=== PATIENT | male | born 1970 | race African-American/Black ===

== ENCOUNTER 2016-12-18 10:53 | Inpatient (IN) | payer MEDICARE, OTHER ==
[2016-12-18] VITALS (9 sets, daily range): BP systolic 151–185; BP diastolic 85–105
[~2016-12-18] VITALS: Ht 170.2 cm; Wt 53.1 kg
[~2016-12-18 10:53] MED LIST: AMLO5TAB2 PO; CALC667C5 PO; CARV12.544 PO; FOLI1TAB6 PO; POLY33504 PO; SEVE800T PO
[2016-12-18] MEDS ORDERED: ONDANSETRON HCL 4 MG/2 ML VIAL IV ONE (12:15)
[2016-12-18] MEDS ORDERED: ASPirin 81 mg TAB PO ONE (12:15)
[2016-12-18] MEDS ORDERED: HYDROmorphone HCL 2 MG/ML VL IV ONE (12:15)
[2016-12-18 12:42] LABS: Basophils # (auto) 0.1 uL; CONDITION Y; DEFINITIVE SEE PRINTOUT; Monocytes # (auto) 1.2 uL; Neutrophils # (auto) 6.8 uL
[2016-12-18 12:53] LABS: Basophils % (auto) 0.7 % (0.0-2.0); Eosinophils # (auto) 0.1 uL; Hematocrit 19.2 % (41.0-53.0); Lymphocytes # (auto) 4.2 uL; Mean Corpuscular Hemoglobin 29.8 pg (28.0-32.0); Mean Corpuscular Hgb Conc. 33.8 g/dL (32.0-36.0); Mean Platelet Volume 8.6 fL (7.4-10.4); Monocytes % (auto) 9.4 % (0.0-12.0); Neutrophils % (auto) 54.9 % (37.0-80.0); Platelet Count (auto) 166 10^3/uL (140-450); Red Cell Distribution Width 15.4 % (11.6-16.0); White Blood Cell 12.3 10^3/uL (4.4-10.8)
[2016-12-18 12:56] LABS: Hemoglobin 6.5 g/dL (13.5-17.5)
[2016-12-18 13:18] LABS: Albumin 3.3 g/dL (3.4-5.0); Alkaline Phosphatase 131 U/L (45-117); Anion Gap 11 (5-15); Aspartate Aminotransferase 59 U/L (15-37); BUN/Creatinine Ratio 4.8; Bilirubin, Total 0.7 mg/dL (0.2-1.0); Blood Urea Nitrogen 38 mg/dL (7-18); Calcium 8.4 mg/dL (8.5-10.1); Carbon Dioxide 23 mmol/L (21-32); Chloride 97 mmol/L (98-107); GFR African American 9 mL/min; GFR Non-African American 8 mL/min; Glucose 111 mg/dL (74-106); Magnesium 2.3 mg/dL (1.6-2.6); Potassium 4.1 mmol/L (3.5-5.1); Sodium 131 mmol/L (136-145); Total Protein 7.8 g/dL (6.4-8.2)
[2016-12-18 13:35] LABS: Hypochromia Marked; Platelet Estimate Adequate; Schistocytes FEW
[2016-12-18 13:39] LABS: B-Type Natriuretic Peptide 728.4 pg/mL (0-100)
[2016-12-18 13:40] LABS: Temperature: 23.3 C (20.0-25.0)
[2016-12-18] MEDS ORDERED: cefTRIAXone 1GM/50ML D5W 50 ML IV ONE (13:45)
[2016-12-18 13:57] LABS: INR 1.05 (0.9-1.15); Partial Thromboplastin Time 31.7 sec (22.64-33.71); Prothrombin Time 11.4 sec (9.37-12.3)
[2016-12-18] MEDS ORDERED: cloNIDine HCL 0.1 MG TAB PO PRN (14:00)
[2016-12-18] MEDS ORDERED: POLYETHYLENE GLYCOL 17 GM PWDR PO PRN (14:00)
[2016-12-18] MEDS ORDERED: ACETAMINOPHEN 325 MG TAB PO PRN (14:15)
[2016-12-18] MEDS ORDERED: CARVEDILOL 12.5 MG TAB PO ONE (14:15)
[2016-12-18] MEDS ORDERED: MORPHINE SULF INJ 2 MG/ML SYRINGE 1ML IV PRN ×2 (14:15)
[2016-12-18] MEDS ORDERED: DOCUSATE SOD 100 MG CAP PO PRN (14:15)
[2016-12-18] MEDS ORDERED: amLODIPine BESYLATE 5 MG TAB PO ONE (14:15)
[2016-12-18] MEDS ORDERED: ONDANSETRON HCL 4 MG/2 ML VIAL IV PRN (14:15)
[2016-12-18] MEDS ORDERED: TEMAZEPAM 15 MG CAP PO PRN (14:15)
[2016-12-18] MEDS ORDERED: NITROGLYCERIN 0.4 MG SL TAB SL PRN (14:15)
[2016-12-18] MEDS ORDERED: HYDROcodone-ACET 5/325MG TAB PO PRN (14:15)
[2016-12-18] MEDS ORDERED: LORazepam 0.5 MG TAB PO ONE (16:30)
[2016-12-18] MEDS: SEVELAMER 800 MG TAB PO SCH (18:56)
[2016-12-18] MEDS: CALCIUM ACETATE 667 MG CAP PO SCH (18:56)
[2016-12-18] MEDS: CARVEDILOL 12.5 MG TAB PO SCH ×2 (22:00→22:13)
[2016-12-18] MEDS: SODIUM CHLOR 0.9% PF (SALINE LOCK) 10ML VIAL IV SCH (22:06)
[2016-12-19] MEDS ORDERED: LORA1TAB12 PO (02:02)
[2016-12-19] MEDS ORDERED: LORazepam 0.5 MG TAB PO ONE ×2 (03:00→12:15)
[2016-12-19 05:00] VITALS: BP 160/96
[2016-12-19] MEDS: SODIUM CHLOR 0.9% PF (SALINE LOCK) 10ML VIAL IV SCH ×3 (05:27→21:50)
[2016-12-19 06:10] LABS: Basophils # (auto) 0.1 uL; Basophils % (auto) 0.6 % (0.0-2.0); CONDITION Y; Eosinophils # (auto) 0.3 uL; Eosinophils % (auto) 2.6 % (0.0-7.0); Hematocrit 27.2 % (41.0-53.0); Hemoglobin 9.2 g/dL (13.5-17.5); Lymphocytes # (auto) 4.1 uL; Lymphocytes % (auto) 35.4 % (10.0-50.0); Mean Corpuscular Hemoglobin 30.2 pg (28.0-32.0); Mean Platelet Volume 8.9 fL (7.4-10.4); Monocytes # (auto) 1.3 uL; Monocytes % (auto) 10.8 % (0.0-12.0); Neutrophils # (auto) 5.9 uL; Neutrophils % (auto) 50.6 % (37.0-80.0); Platelet Count (auto) 131 10^3/uL (140-450); Red Cell Distribution Width 15.5 % (11.6-16.0); White Blood Cell 11.6 10^3/uL (4.4-10.8)
[2016-12-19 06:41] LABS: Albumin 3.1 g/dL (3.4-5.0); Calcium 7.8 mg/dL (8.5-10.1)
[2016-12-19 06:43] LABS: Bilirubin, Total 0.7 mg/dL (0.2-1.0); Total Protein 7.5 g/dL (6.4-8.2)
[2016-12-19 08:00] VITALS: BP 157/85
[2016-12-19] MEDS: SEVELAMER 800 MG TAB PO SCH ×4 (08:00→18:35)
[2016-12-19] MEDS: CALCIUM ACETATE 667 MG CAP PO SCH ×4 (08:00→18:35)
[2016-12-19] MEDS: FOLIC ACID 1 MG TAB PO SCH (09:23)
[2016-12-19] MEDS: MULTIPLE VITAMIN TAB PO SCH (09:24)
[2016-12-19] MEDS: CARVEDILOL 12.5 MG TAB PO SCH ×2 (09:24→21:50)
[2016-12-19] MEDS: amLODIPine BESYLATE 5 MG TAB PO SCH (09:25)
[2016-12-19 12:23] VITALS: BP 143/87
[2016-12-19 17:25] VITALS: BP 146/87
[2016-12-19] MEDS: LORazepam 0.5 MG TAB PO PRN (21:52)
[2016-12-19 21:53] VITALS: BP 153/86
[2016-12-20 05:22] VITALS: BP 160/74
[2016-12-20] MEDS: SODIUM CHLOR 0.9% PF (SALINE LOCK) 10ML VIAL IV SCH (06:17)
[2016-12-20 08:39] VITALS: BP 160/74
[2016-12-20 09:00] VITALS: BP 151/93
[2016-12-20] MEDS: CALCIUM ACETATE 667 MG CAP PO SCH (09:02)
[2016-12-20] MEDS: SEVELAMER 800 MG TAB PO SCH (09:02)
[2016-12-20] MEDS: FOLIC ACID 1 MG TAB PO SCH (09:03)
[2016-12-20] MEDS: MULTIPLE VITAMIN TAB PO SCH (09:03)
[2016-12-20] MEDS: amLODIPine BESYLATE 5 MG TAB PO SCH (09:04)
[2016-12-20] MEDS: CARVEDILOL 12.5 MG TAB PO SCH (09:04)
[2016-12-20] MEDS: LORazepam 0.5 MG TAB PO PRN (09:14)
[2016-12-20 10:01] VITALS: BP 151/93
== END 2016-12-20 11:45 | disposition home or self-care (01) | DRG 811 ==
LOC: ER 10:53 → TELE 10:54 → TELE-CENTR 15:54
PROVIDERS: ADMIT Internal Medicine; ATTEND Internal Medicine
PROC: 5A1D00Z (ICD-10-PCS; principal; 2016-12-18)
PROC: 30233N1 Transfusion of Nonautologous Red Blood Cells into Peripheral Vein, Percutaneous Approach (ICD-10-PCS; 2016-12-18)
DX: D57.00 Hb-SS disease with crisis, unspecified (principal); N18.6 End stage renal disease; E43 Unspecified severe protein-calorie malnutrition; D68.69 Other thrombophilia; I13.11 Hypertensive heart and chronic kidney disease without heart failure, with stage 5 chronic kidney disease, or end stage renal disease; I48.92 Unspecified atrial flutter; Z68.1 Body mass index [BMI] 19.9 or less, adult; F32.9 Major depressive disorder, single episode, unspecified; F41.9 Anxiety disorder, unspecified; I48.91 Unspecified atrial fibrillation; Z82.49 Family history of ischemic heart disease and other diseases of the circulatory system; Z83.3 Family history of diabetes mellitus; Z99.2 Dependence on renal dialysis; Z88.1 Allergy status to other antibiotic agents
CPT/HCPCS: 36415; 71010; 80053; 83735; 83880; 84443; 84484; 85025; 85610; 85730; 86850; 86900; 86901; 86920; 90935; 93005; 99291; J0696; J2405

== ENCOUNTER 2017-03-26 12:40 | Emergency (ER) | payer MEDICARE, OTHER ==
[~2017-03-26] VITALS: Ht 170.2 cm; Wt 52.6 kg
[~2017-03-26 12:40] MED LIST changes: +LORA1TAB12 PO
[2017-03-26 13:41] LABS: Lymphocytes # (auto) 2.8 uL; Monocytes # (auto) 0.9 uL
[2017-03-26 13:43] LABS: Basophils # (auto) 0.2 uL; Basophils % (auto) 1.5 % (0.0-2.0); Eosinophils # (auto) 0.2 uL; Eosinophils % (auto) 1.8 % (0.0-7.0); Hematocrit 22.8 % (41.0-53.0); Hemoglobin 7.8 g/dL (13.5-17.5); Lymphocytes % (auto) 23.6 % (10.0-50.0); Mean Corpuscular Hemoglobin 30.3 pg (28.0-32.0); Mean Corpuscular Hgb Conc. 34.1 g/dL (32.0-36.0); Mean Corpuscular Volume 88.7 fL (80.0-100.0); Mean Platelet Volume 8.3 fL (6.9-10.8); Monocytes % (auto) 7.4 % (0.0-12.0); Neutrophils # (auto) 7.9 uL; Neutrophils % (auto) 65.7 % (37.0-80.0); Nucleated Red Blood Cells % 0.1 %; Platelet Count (auto) 184 10^3/uL (140-450); Red Cell Distribution Width 15.9 % (11.8-14.3)
[2017-03-26 14:05] LABS: Albumin 3.5 g/dL (3.4-5.0); BUN/Creatinine Ratio 6.7; Bilirubin, Total 0.7 mg/dL (0.2-1.0); Calcium 8.6 mg/dL (8.5-10.1); Total Protein 8.8 g/dL (6.4-8.2)
[2017-03-26] MEDS: KETOROLAC TROMETH 60MG/2ML VIAL IM ONE ×2 (15:38→15:42)
[2017-03-26] MEDS ORDERED: cefTRIAXone W LIDOCAINE 1 GM IM IM ONE (15:45)
[2017-03-26] MEDS ORDERED: amLODIPine BESYLATE 5 MG TAB PO ONE (16:00)
[2017-03-26] MEDS ORDERED: HYDROcodone-ACET 10/325MG TAB PO ONE (16:00)
[2017-03-26 17:15] VITALS: BP 149/80
== END 2017-03-26 16:39 | disposition home or self-care (01) ==
LOC: ER 12:40
DX: I12.0 Hypertensive chronic kidney disease with stage 5 chronic kidney disease or end stage renal disease (principal); N18.6 End stage renal disease; G89.29 Other chronic pain; M54.9 Dorsalgia, unspecified; Z90.49 Acquired absence of other specified parts of digestive tract; Z88.1 Allergy status to other antibiotic agents; Z79.899 Other long term (current) drug therapy
CPT/HCPCS: 36415; 80053; 85025; 93005; 96372; 99285; J0696; J1885

== ENCOUNTER 2017-06-21 10:20 | Emergency (ER) | payer MEDICARE, OTHER ==
[~2017-06-21] VITALS: Ht 167.6 cm; Wt 51.3 kg
[2017-06-21 10:47] VITALS: BP 174/98
[2017-06-21] MEDS ORDERED: cefTRIAXone SOD 1,000 MG VL IM ONE (11:00)
[2017-06-21] MEDS ORDERED: ACETAMINOPHEN/CODEINE#3 (300/30mg) TAB PO ONE (11:00)
== END 2017-06-21 11:19 | disposition home or self-care (01) ==
LOC: ER 10:20
DX: K04.7 Periapical abscess without sinus (principal); I12.9 Hypertensive chronic kidney disease with stage 1 through stage 4 chronic kidney disease, or unspecified chronic kidney disease; N18.9 Chronic kidney disease, unspecified; Z90.49 Acquired absence of other specified parts of digestive tract
CPT/HCPCS: 96372; 99283; J0696

== ENCOUNTER 2017-09-26 19:53 | Emergency (ER) | payer MEDICARE, MEDICAID ==
[~2017-09-26] VITALS: Ht 170.2 cm; Wt 49.9 kg
[2017-09-26] MEDS ORDERED: cloNIDine HCL 0.1 MG TAB PO ONE ×2 (20:00→21:45)
[2017-09-26 22:26] VITALS: BP 164/84
== END 2017-09-26 22:50 | disposition home or self-care (01) ==
LOC: ER 19:53 → EDBD 19:53 → ER 22:50
DX: I12.0 Hypertensive chronic kidney disease with stage 5 chronic kidney disease or end stage renal disease (principal); N18.6 End stage renal disease; Z86.73 Personal history of transient ischemic attack (TIA), and cerebral infarction without residual deficits; Z88.1 Allergy status to other antibiotic agents; Z79.899 Other long term (current) drug therapy; Z90.49 Acquired absence of other specified parts of digestive tract

== ENCOUNTER 2017-10-05 08:13 | Emergency (ER) | payer MEDICARE, MEDICAID ==
[~2017-10-05] VITALS: Ht 170.2 cm; Wt 49.0 kg
[2017-10-05] MEDS ORDERED: LORazepam 0.5 MG TAB PO ONE (09:45)
[2017-10-05] MEDS ORDERED: LORazepam 2MG/ML-1ML VIAL IV ONE (09:45)
[2017-10-05 10:04] LABS: Basophils # (auto) 0.3 uL; Basophils % (auto) 1.9 % (0.0-2.0); Eosinophils # (auto) 0.1 uL; Hematocrit 26.8 % (41.0-53.0); Hemoglobin 8.8 g/dL (13.5-17.5); Lymphocytes # (auto) 2.3 uL; Mean Corpuscular Hemoglobin 28.3 pg (28.0-32.0); Mean Corpuscular Hgb Conc. 32.8 g/dL (32.0-36.0); Mean Corpuscular Volume 86.4 fL (80.0-100.0); Monocytes # (auto) 1.4 uL; Monocytes % (auto) 10.2 % (0.0-12.0); Neutrophils # (auto) 9.4 uL; Neutrophils % (auto) 69.9 % (37.0-80.0); Nucleated Red Blood Cells % 0.1 %; Platelet Count (auto) 136 10^3/uL (140-450); White Blood Cell 13.5 10^3/uL (4.4-10.8)
[2017-10-05 10:15] VITALS: BP 181/89
[2017-10-05 10:22] LABS: INR 1.11 (0.9-1.15); Partial Thromboplastin Time 36.9 sec (23.78-33.04); Prothrombin Time 11.8 sec (9.27-12.13)
[2017-10-05 10:26] LABS: Albumin 3.4 g/dL (3.4-5.0); BUN/Creatinine Ratio 4.9; Calcium 8.8 mg/dL (8.5-10.1); Potassium 4.9 mmol/L (3.5-5.1)
== END 2017-10-05 10:15 | disposition short-term general hospital (02) ==
LOC: ER 08:13
DX: S06.5X9A Traumatic subdural hemorrhage with loss of consciousness of unspecified duration, initial encounter (principal); N18.9 Chronic kidney disease, unspecified; I12.0 Hypertensive chronic kidney disease with stage 5 chronic kidney disease or end stage renal disease; N18.6 End stage renal disease; Z90.49 Acquired absence of other specified parts of digestive tract; Z88.1 Allergy status to other antibiotic agents; Z79.899 Other long term (current) drug therapy; W18.39XA Other fall on same level, initial encounter; Y93.89 Activity, other specified; Y92.89 Other specified places as the place of occurrence of the external cause; Y99.8 Other external cause status
CPT/HCPCS: 36415; 70450; 71045; 80053; 84484; 85025; 85610; 85730; 99291

== ENCOUNTER 2018-12-26 20:17 | Inpatient (IN) | payer MEDICARE, MEDICAID ==
[~2018-12-26] VITALS: Ht 170.2 cm; Wt 49.0 kg
[~2018-12-26 20:17] MED LIST changes: +AMLO5TAB15 PO; -AMLO5TAB2 PO
[2018-12-26 21:24] LABS: Basophils # (auto) 0.1 uL; Basophils % (auto) 1.2 % (0.0-2.0); Eosinophils # (auto) 0 uL; Eosinophils % (auto) 0.2 % (0.0-7.0); Hematocrit 27.6 % (41.0-53.0); Hemoglobin 9.3 g/dL (13.5-17.5); Lymphocytes # (auto) 2.4 uL; Lymphocytes % (auto) 20.1 % (10.0-50.0); Mean Corpuscular Hemoglobin 29.8 pg (28.0-32.0); Mean Corpuscular Hgb Conc. 33.9 g/dL (32.0-36.0); Monocytes # (auto) 0.9 uL; Monocytes % (auto) 7.7 % (0.0-12.0); Neutrophils # (auto) 8.5 uL; Neutrophils % (auto) 70.8 % (37.0-80.0); Nucleated Red Blood Cells % 0.3 %; Platelet Count (auto) 180 10^3/uL (140-450); Red Blood Cells 3.13 10^6/uL (4.5-5.90); Red Cell Distribution Width 16.3 % (11.8-14.3)
[2018-12-26 21:56] LABS: Bilirubin, Total 0.8 mg/dL (0.2-1.0); Total Protein 9.9 g/dL (6.4-8.2)
[2018-12-26 22:05] LABS: BUN/Creatinine Ratio 9.4; Calcium 7.3 mg/dL (8.5-10.1)
[2018-12-26 22:06] LABS: Albumin 4.1 g/dL (3.4-5.0); Magnesium 2.4 mg/dL (1.6-2.6); Potassium 6.4 mmol/L (3.5-5.1)
[2018-12-27] VITALS (20 sets, daily range): BP systolic 184–228; BP diastolic 93–123
[2018-12-27] MEDS ORDERED: HYDROmorphone HCL 2 MG/ML VL IV ONE ×2 (01:15→08:45)
[2018-12-27] MEDS ORDERED: PROMETHAZINE HCL 25 MG/ML 1ML IV ONE (08:45)
[2018-12-27] MEDS ORDERED: FUROSEMIDE 40 MG/4 ML VIAL IV ONE (08:45)
[2018-12-27] MEDS ORDERED: SODIUM BICARBONATE 8.4 % INJ 50ML VIAL IV ONE (08:45)
[2018-12-27] MEDS ORDERED: CALCIUM CHL 100MG/ML 1,000 MG in D5W 5% 100 ML IV ONE (08:45)
[2018-12-27] MEDS ORDERED: ALBUTEROL SULF 2.5 MG/0.5ML(0.5%) NEB SOLN NEB ONE (08:45)
[2018-12-27] MEDS ORDERED: ONDANSETRON HCL 4 MG/2 ML VIAL IV PRN (12:30)
[2018-12-27] MEDS ORDERED: cloNIDine HCL 0.1 MG TAB PO ONE ×2 (12:30→20:00)
[2018-12-27] MEDS ORDERED: HYDROcodone-ACET 5/325MG TAB PO PRN (12:30)
[2018-12-27] MEDS ORDERED: NITROGLYCERIN 0.4 MG SL TAB SL PRN (12:30)
[2018-12-27] MEDS ORDERED: MORPHINE SULF INJ 2 MG/ML SYRINGE 1ML IV PRN ×2 (12:30)
[2018-12-27] MEDS ORDERED: ACETAMINOPHEN 500 MG TAB PO PRN (12:30)
[2018-12-27] MEDS ORDERED: VANCOMYCIN PER PHARMACY 0 MG IV SCH (12:30)
[2018-12-27] MEDS ORDERED: VANCOMYCIN 1GM/250ML 250 ML IV ONE (13:45)
[2018-12-27] MEDS: HYDROmorphone HCL 2 MG/ML VL IV PRN ×3 (15:46→23:49)
[2018-12-27] MEDS: LABETALOL HCL 5 MG/ML ML 20ML VIAL IV PRN ×4 (15:46→23:38)
[2018-12-27] MEDS ORDERED: InsuLIN REG 1unit/0.01ml Soln (100units/ml) IV ONE (16:15)
[2018-12-27] MEDS: SODIUM ZIRCONIUM CYCL 10 GM PAK PO SCH (16:15)
[2018-12-27] MEDS ORDERED: DEXTROSE (50%) 50ML SYRG IV ONE (16:15)
[2018-12-27] MEDS ORDERED: LORazepam 2MG/ML-1ML VIAL ONE (16:27)
[2018-12-27] MEDS ORDERED: FAMOTIDINE 20 MG TAB PO PRN (17:00)
[2018-12-27] MEDS: LORazepam 2MG/ML-1ML VIAL IV PRN (17:20)
--- NOTE | 2018-12-27 17:51 | NUR ---
Admit to ICU from ER on vent MANJIT CHESTER admitted to ICU via rney on monitoring coordinator, ALERT AND ORIENTED. Patient transfered to bed, connected to MONITORS, BVM at bedside. Patient connected to ICU monitoring, weighed by gabriella, oriented to SAMIR DAVIS RN primary RN, unit. PATIENT VITAL SIGNS STABLE, ELEVATED BLOOD PRESSURE, NICARDAPINE DRIP BEING STARTED.
[2018-12-27] MEDS: CALCIUM ACETATE 667 MG CAP PO SCH (18:00)
--- NOTE | 2018-12-27 18:12 | NUR ---
UA AND MRSA SWABS SENT TO LAB PATIENT VOIDED 10 MLS YELLOW URINE IN URINAL PRIOR TO ICU ARRIVAL - SENT TO LAB PER MD REQUEST FOR UA. MRSA X2 SENT TO LAB PER ICU ADMISSION PROTOCOL.
--- NOTE | 2018-12-27 18:39 | NUR ---
CONTACT HOSPITALIST REGARDING DIET ORDER, ORDER FOR CARDIAC/RENAL DIET RECEIVED - HOSPITALIST EBER ORDERED ATTEMPTED BLOOD DRAW FROM RIGHT EJ TO SENT TO LAB FOR POTASSIUM RECHECK PATIENT HAS BEEN REFUSING BLOOD DRAW, RIGHT EJ FLUSHES BUT UNABLE TO ASPIRATE BLOOD FROM RIGHT EJ CATHETER. PAGED HOSPITALIST TO NOTIFY.
[2018-12-27 18:52] LABS: Urine Bacteria FEW /hpf (None Seen); Urine Blood TRACE /uL (Negative); Urine WBC 1 /hpf (0 - 3)
[2018-12-27] MEDS: NICARDIPINE 25MG/250ML BAG KIT 250 ML IV SCH ×2 (19:03→21:30)
--- NOTE | 2018-12-27 19:10 | NUR ---
REPORT GIVEN AND CARE ENDORSED TO CIVIL ENGINEERING DESIGNER MARTÍN DUMONT
--- NOTE | 2018-12-27 19:54 | NUR ---
SPOKE WITH EBER WARE, [facility] HOSPITALIST. HE IS AWARE THAT WE ARE UNABLE TO USE THE LEJ IV DUE TO HIGH PRESSURE. MIDLINE ORDER IS IN FOR TOMORROW. ORDER RECEIVED FOR CLONIDINE PO NOW AND LABETOLOL 20 IV X 1 NOW. AWARE OF HIS CURRENT BLOOD PRESSURE 191/104. HR 83. EATING DINNER.
[2018-12-27] MEDS ORDERED: LABETALOL HCL 5 MG/ML ML 20ML VIAL IV ONE (20:00)
--- NOTE | 2018-12-27 20:05 | NUR ---
SPOKE WITH THE PATIENTS SISTER AND SHE WANTS US TO GET HIM EMERGENCY DIALYSIS. CALL IN TO THE HOSPITALIST. EXPLAINED TO HIM THE PLAN FOR HIS CARE WITH MEDICATION TO CONTROL HIS BLOOD PRESSURE. HE IS REQUESTING PAIN MEDICATION FOR PAIN HE EXPERIENCES THROUGH HIS SICKLE CELL.
--- NOTE | 2018-12-27 20:33 | NUR ---
SPOKE WITH DR JOHNSON. HE ASKED ME TO CALL DR SANDRA. PATIENT WANTS EMERGENCY DIALYSIS. CALLED DR SANDRA'S EXCHANGE AND EXPLAINED THE SITUATION. THE CALL CENTER STATED THAT THEY WOULD ZAHEER IT URGENT. BUN 91 AND CREAT 9.65. PAIN MEDICATION GIVEN AND THE TWO MEDS CLONIDINE AND LABETOLOL.
[2018-12-27] MEDS: CARVEDILOL 12.5 MG TAB PO SCH (21:44)
--- NOTE | 2018-12-27 22:21 | NUR ---
STATES HE HAS A HEADACHE AND HE IS NERVOUS. REQUESTING ATIVAN. THE CURRENT ORDER IS NOT DUE TILL 0120. THE CRUSHER TENDER IS HERE. HE IS TEXTING DR SANDRA FOR A POSSIBLE ONE TIME DOSE OF ATIVAN. REFUSING TYLENOL OR NORCO.
[2018-12-27 22:22] LABS: INR 1.16 (0.9-1.15); Partial Thromboplastin Time 41.1 sec (23.64-32.05)
[2018-12-27 22:28] LABS: Basophils # (auto) 0.1 uL; Basophils % (auto) 0.9 % (0.0-2.0); Eosinophils # (auto) 0 uL; Eosinophils % (auto) 0.2 % (0.0-7.0); Hematocrit 22.6 % (41.0-53.0); Hemoglobin 7.6 g/dL (13.5-17.5); Lymphocytes # (auto) 3.4 uL; Lymphocytes % (auto) 27.2 % (10.0-50.0); Mean Corpuscular Hemoglobin 29.7 pg (28.0-32.0); Mean Corpuscular Hgb Conc. 33.9 g/dL (32.0-36.0); Mean Corpuscular Volume 87.6 fL (80.0-100.0); Monocytes # (auto) 1.3 uL; Monocytes % (auto) 10.7 % (0.0-12.0); Neutrophils # (auto) 7.5 uL; Nucleated Red Blood Cells % 0.2 %; Platelet Count (auto) 181 10^3/uL (140-450); Red Blood Cells 2.57 10^6/uL (4.5-5.90); Red Cell Distribution Width 15.8 % (11.8-14.3); White Blood Cell 12.4 10^3/uL (4.4-10.8)
[2018-12-27 22:33] LABS: Albumin 3.3 g/dL (3.4-5.0); Calcium 6.9 mg/dL (8.5-10.1); Magnesium 2.3 mg/dL (1.6-2.6)
[2018-12-27 22:36] LABS: BUN/Creatinine Ratio 9.8; Bilirubin, Total 0.7 mg/dL (0.2-1.0); Total Protein 8.4 g/dL (6.4-8.2)
[2018-12-27 22:44] LABS: Potassium 6.5 mmol/L (3.5-5.1)
[2018-12-27] MEDS ORDERED: EPOETIN ALFA 10,000 UNIT/1 ML VIAL IV ONE (22:45)
[2018-12-27] MEDS ORDERED: LORazepam 0.5 MG TAB PO ONE (22:45)
--- NOTE | 2018-12-27 23:24 | NUR ---
CALLED PHARMACY FOR THE ATIVAN ORDER TO BE PUT THROUGH
[2018-12-28] VITALS (43 sets, daily range): BP systolic 155–236; BP diastolic 79–123
[2018-12-28] MEDS: SODIUM ZIRCONIUM CYCL 10 GM PAK PO SCH ×3 (00:15→16:15)
[2018-12-28] MEDS: LABETALOL HCL 5 MG/ML ML 20ML VIAL IV PRN ×6 (01:37→20:38)
--- NOTE | 2018-12-28 01:40 | NUR ---
DECISION TO STAY ON DIALYSIS. SBP HIGH. Q 2 HR LABETOLOL. NSR WITH OCCASIONAL PVCS.
[2018-12-28] MEDS: NICARDIPINE 25MG/250ML BAG KIT 250 ML IV SCH ×3 (02:30→12:17)
--- NOTE | 2018-12-28 04:00 | NUR ---
WOKE UP AND FIRST THING HE ASKED FOR WAS PAIN MEDICATION. SBP 221. DILAUDID AND LABETOLOL GIVEN. NO NAUSEA. SPEECH CLEAR. HINKLE WELL. NSR WITHOUT ECTOPY. IV PUSHES HARD.
[2018-12-28 04:08] LABS: Basophils # (auto) 0.1 uL; Eosinophils # (auto) 0.1 uL; Neutrophils # (auto) 6.2 uL; Red Blood Cells 2.78 10^6/uL (4.5-5.90)
[2018-12-28 04:11] LABS: Basophils % (auto) 0.8 % (0.0-2.0); Eosinophils % (auto) 1.1 % (0.0-7.0); Hematocrit 24.3 % (41.0-53.0); Hemoglobin 8.5 g/dL (13.5-17.5); Lymphocytes % (auto) 29.4 % (10.0-50.0); Mean Corpuscular Hemoglobin 30.4 pg (28.0-32.0); Mean Corpuscular Hgb Conc. 34.8 g/dL (32.0-36.0); Mean Corpuscular Volume 87.2 fL (80.0-100.0); Monocytes # (auto) 0.9 uL; Monocytes % (auto) 8.3 % (0.0-12.0); Neutrophils % (auto) 60.4 % (37.0-80.0); Nucleated Red Blood Cells % 0.1 %; Platelet Count (auto) 173 10^3/uL (140-450); Red Cell Distribution Width 15.7 % (11.8-14.3); White Blood Cell 10.2 10^3/uL (4.4-10.8)
[2018-12-28] MEDS: HYDROmorphone HCL 2 MG/ML VL IV PRN ×5 (04:59→22:01)
[2018-12-28] MEDS: CARVEDILOL 12.5 MG TAB PO SCH (05:54)
[2018-12-28] MEDS: amLODIPine BESYLATE 5 MG TAB PO SCH (05:54)
--- NOTE | 2018-12-28 05:55 | NUR ---
SBP REMAINS HIGH DESPITE THE Q 2 HR LABETOLOL. NORVASC AND COREG, HIS REGULAR MEDICATIONS HE TAKES AT HOME, GIVEN EARLY.
[2018-12-28] MEDS: LORazepam 2MG/ML-1ML VIAL IV PRN ×2 (06:02→18:41)
--- NOTE | 2018-12-28 07:30 | NUR ---
RECEIVED REPORT PATIENT LYING IN HOSPITAL BED, EYES CLOSED, RESPIRATIONS EVEN AND UNLABORED. NO S/S OF DISTRESS NOTED. ELEVATED BLOOD PRESSURE. NOC RN JUST ADMINISTERED PRN MEDICATION. WILL CONTINUE TO MONITOR CLOSELY. BED IN LOW POSITION, CALL LIGHT WITHIN REACH, IN VIEW OF NURSES STATION
[2018-12-28] MEDS: CALCIUM ACETATE 667 MG CAP PO SCH ×3 (08:00→18:41)
--- NOTE | 2018-12-28 08:00 | NUR ---
REFUSING MIDLINE ORDER RECEIVED FOR MIDLINE ONLY FOR POSITION 18GUAGE EJ. INFORMED PATIENT AWAITING USER EXPERIENCE LEAD PICC RN AND PATIENT STATES "NO ONE ELSE WILL BE POKING ME OR INSERTING ANY OTHER LINE" EDUCATED PATIENT IMPORTANCE OF HAVING PROPER IV ACCESS. PATIENT CONTINUES TO REFUSE. WILL NOTIFY
--- NOTE | 2018-12-28 08:30 | NUR ---
PATIENT REFUSING CURRENT BREAKFAST, STATES WANTED [place] TOAST. LEFT MESSAGE FOR DIETARY. ALSO REFUSED ORDERED MEDS OF PHOSLO AND LOKELMA. EDUCATED PATIENT IMPOETNACE OF TAKING ORDERED MEDICATION. PATIENT VERBALIZED UNDERSTANDING BUT STILL REFUSES. STATES HE ONLY WANTS TO TAKE HOME MEDICATIONS. WILL NOTIFIY
[2018-12-28] MEDS: cefTRIAXone 1GM/50ML D5W 50 ML IV SCH (09:00)
[2018-12-28] MEDS ORDERED: HYDR50TA15 PO (09:35)
[2018-12-28] MEDS ORDERED: LABE300T3 PO (09:36)
--- NOTE | 2018-12-28 09:45 | NUR ---
PATIENT REFUSING COZAAR STATES DOES NOT WANT TO TAKE A NEW MEDICATION, ONLY WANTS HOME MEDICATIONS RESTARTED. EDUCATED IMPORTANCE OF TAKING BLOOD PRESSURE MEDICATIONS HIS BLOOD PRESSURE IF VERY ELEVATED. HE VERBALIZED UNDERSTANDING BUT INSISTED ONLY WILL TAKE HOME MEDICATIONS. WILL NOTIFY
[2018-12-28 09:47] LABS: Albumin 3.3 g/dL (3.4-5.0); BUN/Creatinine Ratio 8.2; Calcium 7.5 mg/dL (8.5-10.1); Potassium 3.7 mmol/L (3.5-5.1)
[2018-12-28 09:48] LABS: Bilirubin, Total 0.9 mg/dL (0.2-1.0); Phosphorus 3.1 mg/dL (2.5-4.90); Total Protein 8.4 g/dL (6.4-8.2)
[2018-12-28] MEDS ORDERED: LOSARTAN POTASSIUM 25 MG TAB PO SCH (10:00)
--- NOTE | 2018-12-28 10:15 | NUR ---
DR SANDRA AT BEDSIDE UPDATED ON CURRENT STATUS. RECEIVED NEW ORDERS TO RESUME PATIENTS HOME BLOOD PRESSURE MEDICATIONS. PATIENT UPDATED ON PLAN OF CARE
[2018-12-28] MEDS: hydrALAZINE HCL 25 MG TAB PO SCH ×2 (10:31→22:22)
[2018-12-28] MEDS: LABETALOL HCL 200 MG TAB PO SCH ×2 (10:33→22:22)
--- NOTE | 2018-12-28 12:20 | NUR ---
DR SCHULTE AT BEDSIDE DISCUSSED PLAN OF CARE WITH PATIENT, NEW ORDERS PLACED
--- NOTE | 2018-12-28 13:06 | NUR ---
BED ASSIGNMENT GIVEN 237, REPORT GIVEN TO MADISON RESENDIZ PATIENT WILL FINISH EATING LUNCH AND THEN BE TRANSFERRED TO NEW ROOM ASSIGNMENT. PATIENT AWARE
--- NOTE | 2018-12-28 14:45 | NUR ---
PATIENT TRANSPORTED VIA HOSPITAL BED, CONNECTED TO PORTABLE TELE BOX. STABLE AT TIME OF TRANSFER. VANCOMYCIN DOSAGE GIVEN TO RECEIVING RNMADISON.
--- NOTE | 2018-12-28 14:57 | NUR ---
PER PATIENTS REQUEST, CALLED AND NOTIFIED PATIENTS SISTER EMMANUEL OF NEW ROOM ASSIGNMENT
--- NOTE | 2018-12-28 14:58 | NUR ---
Transferred From ICU Received report on patient, awake and sitting up in bed. Patient shows no signs of distress at this time but states pain 7/10 in joints. Discussed POC with patient along with pain management. Patient refusing antibiotic Vancomycin at this time, stating "I don't like how it makes my stomach feel". Offered patient food to put on stomach as well as PRN nausea medication, but patient still states he does not want to take it. Educated patient importance of antibiotic, patient verbalized understanding. Patient on tele monitor #4 reading sinus rhythm 73. Blood pressure reading 178/85. Discussed PRN blood pressure medication with patient, he verbalized understanding. Bed in lowest locked position, side rails up x2 and call light within reach. Will continue to monitor.
[2018-12-28] MEDS ORDERED: VANCOMYCIN 500 MG in D5W 5% 100 ML IV ONE (15:00)
--- NOTE | 2018-12-28 18:42 | NUR ---
Closing Note Patient sitting up in bed eating dinner. Patient asked for oxygen and stated they feel SOB. Patient's O2 saturation 97% on RA but stated, "that thing don't mean nothing. It doesn't tell you how I'm feeling". Patient placed on PRN oxygen 2L NC. Patient received PRN anxiety medication as well. NOC nurse will be made aware.
--- NOTE | 2018-12-28 19:12 | NUR ---
Opening Shift Note Assumed care of patient, awake and alert x4. No S/S of distress/SOB. He is complaining of pain 8/0-10 to his shoulders and joints, no pain medications due at this time, pain management options discussed. Call light is within reach, side rail sup x2, bed is in lowest position. Instructed on POC and to call for assist PRN, will continue to monitor for changes Q1hr and PRN.
--- NOTE | 2018-12-28 21:36 | NUR ---
IV insertion to left shoulder IV access obtained, via clean sterile technique by inserting 22 gauge catheter to the left shoulder after 3 attempt(s). IV secured properly. No trauma to site. Patient tolerated well.
--- NOTE | 2018-12-28 22:03 | NUR ---
IV removal from LEJ due to infiltration IV DC'd with clean sterile technique, catheter fully intact. Pressure dressing applied to site. Patient tolerated well.
--- NOTE | 2018-12-28 23:38 | NUR ---
Blood pressure recheck after 2200 blood pressure medications, patient's BP is now 159/76. There is a prn labetalol IV ordered for systolic blood pressure over 150, this RN informed the patient his blood pressure was still high, he stated, "I've taken enough blood pressure meds tonight, I don't need no more, that blood pressure is good for me." Educated him on the importance of keeping his blood pressure under control, the medications prescribed can help lower it. Patient refused. Will continue to monitor.
[2018-12-29] MEDS: SODIUM ZIRCONIUM CYCL 10 GM PAK PO SCH ×3 (00:15→08:57)
[2018-12-29] MEDS: HYDROmorphone HCL 2 MG/ML VL IV PRN ×3 (02:04→10:25)
[2018-12-29] MEDS: LORazepam 2MG/ML-1ML VIAL IV PRN ×2 (02:46→10:24)
[2018-12-29 05:19] VITALS: BP 175/97
[2018-12-29] MEDS: LABETALOL HCL 200 MG TAB PO SCH (06:24)
[2018-12-29] MEDS: hydrALAZINE HCL 25 MG TAB PO SCH (06:25)
[2018-12-29 06:43] LABS: Basophils # (auto) 0.1 uL; Basophils % (auto) 0.9 % (0.0-2.0); Eosinophils # (auto) 0.1 uL; Lymphocytes # (auto) 3.4 uL; Neutrophils # (auto) 5.7 uL; Neutrophils % (auto) 54.6 % (37.0-80.0)
[2018-12-29 06:45] LABS: Hematocrit 22.2 % (41.0-53.0); Hemoglobin 7.4 g/dL (13.5-17.5); Lymphocytes % (auto) 32.7 % (10.0-50.0); Mean Corpuscular Hgb Conc. 33.5 g/dL (32.0-36.0); Mean Corpuscular Volume 89.6 fL (80.0-100.0); Monocytes # (auto) 1.1 uL; Monocytes % (auto) 10.8 % (0.0-12.0); Nucleated Red Blood Cells % 0.1 %; Platelet Count (auto) 183 10^3/uL (140-450); Red Blood Cells 2.48 10^6/uL (4.5-5.90); White Blood Cell 10.4 10^3/uL (4.4-10.8)
--- NOTE | 2018-12-29 07:15 | NUR ---
Opening Shift Note Report received from NOC RN. Patient rounded on by both RNs, patient observed awake, alert, and resting without S/S of distress. This RN introduced to patient and POC discussed. Patient verbalized understanding. Call monge within reach and patient understood to call if needing assistance.
[2018-12-29 07:23] LABS: Alanine Aminotransferase 30 U/L (16-61); Albumin 2.9 g/dL (3.4-5.0); Anion Gap 12 (5-15); Aspartate Aminotransferase 49 U/L (15-37); BUN/Creatinine Ratio 7.7; Blood Urea Nitrogen 54 mg/dL (7-18); Calcium 6.3 mg/dL (8.5-10.1); Carbon Dioxide 26 mmol/L (21-32); Chloride 98 mmol/L (98-107); GFR African American 11 mL/min; GFR Non-African American 9 mL/min; Glucose 111 mg/dL (74-106); Potassium 5.1 mmol/L (3.5-5.1); Sodium 136 mmol/L (136-145)
[2018-12-29 07:25] LABS: Alkaline Phosphatase 155 U/L (45-117); Bilirubin, Total 0.6 mg/dL (0.2-1.0); Total Protein 7.6 g/dL (6.4-8.2)
[2018-12-29 07:43] VITALS: BP 177/89
[2018-12-29] MEDS: CALCIUM ACETATE 667 MG CAP PO SCH ×3 (08:00→12:37)
--- NOTE | 2018-12-29 08:00 | NUR ---
IV infilitrated Left shoulder IV infiltrated, removed with tip intact. Pressure dressing applied. Attempted to get another IV, patient stated it hurt too bad and that he wanted the charge nurse to attempt to get one. Charge nurse Noreen informed who placed 24G Left Upper arm.
[2018-12-29] MEDS: cefTRIAXone 1GM/50ML D5W 50 ML IV SCH (09:00)
--- NOTE | 2018-12-29 09:00 | NUR ---
Refused medications Patient refused lokelma and phoslo even after this RN educated him on the implications for these. Patient then also refused rocephin.
[2018-12-29] MEDS ORDERED: SODIUM CHL 0.9% 1000 ML BAG XX ONE (09:30)
[2018-12-29] MEDS: amLODIPine BESYLATE 5 MG TAB PO SCH (09:39)
--- NOTE | 2018-12-29 10:15 | NUR ---
at bedside Dr. Swartz at bedside and discussed POC with patient. Plan for patient to have dialysis and then discharge home after. Patient verbalized understanding and requested prescription for ativan. MD verbalized he would provide this.
--- NOTE | 2018-12-29 11:00 | NUR ---
Refused Dialysis Dialysis nurse came to bedside and patient refused to have dialysis per dialysis nurse. Dr. Swartz stated to send patient home and he can go to dialysis tomorrow at [facility] dialysis.
[2018-12-29] MEDS ORDERED: LORazepam 0.5 MG TAB PO ONE (11:15)
[2018-12-29 12:01] VITALS: BP 175/92
[2018-12-29 12:46] VITALS: BP 170/88
--- NOTE | 2018-12-29 13:35 | NUR ---
Discharge Discharge instructions reviewed with patient, who verbalized understanding. IV discontinued with tip in place, pressure dressing applied. Telemetry box cleaned, placed in bubble wrap, and sent to ICU, spoke with Taylor from tele to notify. brianna Fritz, wheeling patient downstairs to ER for taxi pickup.
[2018-12-29] MEDS ORDERED: EPOETIN ALFA 10,000 UNIT/1 ML VIAL SC ONE (21:00)
== END 2018-12-29 13:41 | disposition home or self-care (01) | DRG 640 ==
LOC: ER 20:18 → TELE 20:19 → ICU WEST 12-27 18:04 → TELE-EAST 12-28 14:40
PROVIDERS: ADMIT Nurse Practitioner Acute Care; ATTEND Nurse Practitioner Acute Care
PROC: 5A1D70Z Performance of Urinary Filtration, Intermittent, Less than 6 Hours Per Day (ICD-10-PCS; principal; 2018-12-27)
DX: E87.5 Hyperkalemia (principal); N18.6 End stage renal disease; I16.9 Hypertensive crisis, unspecified; I12.0 Hypertensive chronic kidney disease with stage 5 chronic kidney disease or end stage renal disease; I16.0 Hypertensive urgency; D57.1 Sickle-cell disease without crisis; M35.3 Polymyalgia rheumatica; D63.1 Anemia in chronic kidney disease; I51.7 Cardiomegaly; D72.829 Elevated white blood cell count, unspecified; F41.9 Anxiety disorder, unspecified; Z86.73 Personal history of transient ischemic attack (TIA), and cerebral infarction without residual deficits; Z79.899 Other long term (current) drug therapy; Z91.19 Patient's noncompliance with other medical treatment and regimen; Z99.2 Dependence on renal dialysis; Z87.442 Personal history of urinary calculi; Z90.49 Acquired absence of other specified parts of digestive tract; Z88.1 Allergy status to other antibiotic agents
CPT/HCPCS: 36415; 71045; 80053; 80202; 81001; 82962; 83605; 83735; 84100; 84484; 85025; 85045; 85610; 85730; 87040; 87081; 90935; 93005; 94644; 96374; 96375; G0378; J0696; J0885; J7060

== ENCOUNTER 2019-02-07 15:59 | Inpatient (IN) | payer MEDICARE, MEDICAID ==
[~2019-02-07] VITALS: Ht 170.2 cm; Wt 56.3 kg
--- NOTE | 2019-02-07 00:56 | NUR ---
MS admit from [facility] admitted to tele/MS after SBAR received from Charles RESENDIZ. Per Charles RESENDIZ, patient is to have the ordered blood transfusion with dialysis in the morning, as ordered by . Patient oriented to josh MAYERS RN, unit, room, bed, and unit policies regarding patient care and visiting hours. Patient weighed by bedscale and encouraged to call as needed. All questions and concerns addressed, patient verbalized understanding. Bed is locked in lowest position, side rails x 2 are up, call light is within reach, and bed alarm is on. Addendum: 02/08/19 at 0224 by SELVIN HURST RN RN WRONG DATE: 02/07/2019 CORRECT DATE AND TIME: 02/08/2019 00:56
[~2019-02-07 15:59] MED LIST changes: +HYDR50TA15 PO; +LABE300T3 PO
[2019-02-07 16:53] LABS: Basophils # (auto) 0.3 uL; Monocytes # (auto) 1.3 uL; Nucleated Red Blood Cells % 0.3 %; Red Cell Distribution Width 17.7 % (11.8-14.3)
[2019-02-07 16:57] LABS: Basophils % (auto) 2.1 % (0.0-2.0); Eosinophils # (auto) 0.1 uL; Eosinophils % (auto) 0.9 % (0.0-7.0); Hematocrit 20.8 % (41.0-53.0); Hemoglobin 7.2 g/dL (13.5-17.5); Lymphocytes # (auto) 3.7 uL; Lymphocytes % (auto) 25.4 % (10.0-50.0); Mean Corpuscular Hemoglobin 29.3 pg (28.0-32.0); Mean Corpuscular Hgb Conc. 34.7 g/dL (32.0-36.0); Mean Corpuscular Volume 84.4 fL (80.0-100.0); Neutrophils # (auto) 9.1 uL; Neutrophils % (auto) 62.6 % (37.0-80.0); Platelet Count (auto) 224 10^3/uL (140-450); Red Blood Cells 2.47 10^6/uL (4.5-5.90); White Blood Cell 14.6 10^3/uL (4.4-10.8)
[2019-02-07 17:12] LABS: Albumin 3.1 g/dL (3.4-5.0); BUN/Creatinine Ratio 8.7; Potassium 4.2 mmol/L (3.5-5.1)
[2019-02-07 17:15] LABS: Bilirubin, Total 0.8 mg/dL (0.2-1.0); Total Protein 8.1 g/dL (6.4-8.2)
[2019-02-07] MEDS ORDERED: hydrALAZINE HCL 20 MG/ML VL IV ONE ×2 (17:15→20:15)
[2019-02-07] MEDS ORDERED: ONDANSETRON HCL 4 MG/2 ML VIAL IV ONE (17:15)
[2019-02-07] MEDS ORDERED: HYDROmorphone HCL 2 MG/ML VL IV ONE ×2 (17:15→20:15)
[2019-02-07 17:26] LABS: Calcium 5.9 mg/dL (8.5-10.1)
[2019-02-07] MEDS ORDERED: PROMETHAZINE HCL 25 MG/ML 1ML IV ONE (20:15)
[2019-02-07] MEDS ORDERED: LORazepam 2MG/ML-1ML VIAL IV ONE (20:30)
[2019-02-07] MEDS ORDERED: ONDANSETRON HCL 4 MG/2 ML VIAL IV PRN (21:30)
[2019-02-07] MEDS ORDERED: MORPHINE SULFATE 4 MG/ML SYR/VIAL IV PRN (21:30)
[2019-02-07] MEDS ORDERED: ACETAMINOPHEN 325 MG TAB PO PRN (21:30)
[2019-02-07] MEDS: LABETALOL HCL 200 MG TAB PO SCH (22:00)
[2019-02-07] MEDS: SODIUM CHLORIDE 0.9% 1,000 ML IV SCH (22:52)
[2019-02-07] MEDS: hydrALAZINE HCL 25 MG TAB PO SCH (22:53)
[2019-02-07] MEDS: CARVEDILOL 12.5 MG TAB PO SCH (22:54)
[2019-02-07] MEDS: HYDROmorphone HCL 2 MG TAB PO PRN (22:54)
[2019-02-08] VITALS (10 sets, daily range): BP systolic 125–230; BP diastolic 59–122
[2019-02-08] MEDS: HYDROmorphone HCL 2 MG TAB PO PRN ×3 (00:35→11:18)
[2019-02-08] MEDS: CARVEDILOL 12.5 MG TAB PO SCH ×3 (00:35→22:00)
--- NOTE | 2019-02-08 00:38 | NUR ---
RAQUELAR received from Charles RESENDIZ. Current BP is 169/90. Informed the patient is going to be brought to the floor.
--- NOTE | 2019-02-08 01:30 | NUR ---
PAIN Patient is complaining of pain to the lower back and right shoulder. Patient rates his pain 10/10. Patient was offered PRN IV morphine 2mg, as ordered by MD. Patient is refusing morphine IV at this time. Patient reports that he only takes PO morphine at home and has never taken morphine IV. This RN educated patient that the only pain medication this RN can give at this time is morphine IV. Patient continues to refuse PRN morphine and is requesting hydromorphone for pain. Will inform hospitalist.
[2019-02-08] MEDS ORDERED: MORP1CAP9 PO (01:49)
--- NOTE | 2019-02-08 01:55 | NUR ---
HOSPITALIST PAGED RE: PAIN MEDICATIONS Hospitalist paged regarding pain medications. Patient is complaining of pain to the lower back, right shoulder, and headache (pain scale 10/10). Patient is refusing the ordered PRN IV morphine. Patient reports he only takes morphine PO 30mg every 4-6 hours at home for pain. Patient reports that the only thing that helps with his pain is the hydromorphone IV and patient is requesting hydromorphone IV at this time. Patient is also requesting Ativan prior to getting his dialysis this morning, due to patient getting anxious. Awaiting call back.
--- NOTE | 2019-02-08 02:52 | NUR ---
HOSPITALIST RETURNED CALL RE: PAIN MEDICATION Informed HOSPITALITY COORDINATOR Mamadou that patient is complaining of generalized pain (pain scale 10/10). HOSPITALITY COORDINATOR Cedillo aware that patient has Morphine IV 2mg PRN for pain ordered and patient is refusing morphine IV at this time. Notified EDUAR Cedillo, that patient is requesting hydromorphone IV for pain. No new orders received at this time.
--- NOTE | 2019-02-08 03:10 | NUR ---
PAIN Patient continues to complain of pain (pain scale 10/10). Patient has been offered the PRN Morphine 2mg IV as ordered by MD. Patient continues to refuse PRN morphine IV at this time. Patient states "I do not want to take a new medication I have not taken before." Patient reports he is usually given Hydromorphone IV. Patient educated that the only pain medication available at this time is PRN IV Morphine. Patient is also aware that the next time he can get the PRN hydromorphone PO is at 0454. Patient verbalized understanding and continues to refuse PRN IV Morphine for pain at this.
--- NOTE | 2019-02-08 05:29 | NUR ---
SPOKE WITH EDUAR RUEDA RE: ANXIETY MEDICATION Notified EDUAR Rueda that patient reports he gets anxious prior to receiving dialysis and is requesting something for anxiety. Orders for Ativan 0.5mg PO x 1 received. Order repeated and verified. Will carry out order as received.
[2019-02-08] MEDS ORDERED: LORazepam 0.5 MG TAB PO ONE (05:30)
[2019-02-08] MEDS: LABETALOL HCL 200 MG TAB PO SCH ×3 (06:00→22:00)
[2019-02-08] MEDS: hydrALAZINE HCL 25 MG TAB PO SCH ×3 (06:00→22:00)
--- NOTE | 2019-02-08 06:10 | NUR ---
PATIENT REFUSING ORDERED ANXIETY MEDICATION Updated patient on order received for anxiety. Patient is refusing ordered Ativan 5mg PO. Patient states he needs something stronger prior to receiving dialysis. Patient is also complaining of pain 02/05. Patient has been offered the morphine IV for pain and continues to refuse Morphine IV. Patient continues to request Hydromorphone IV. Patient has been educated regarding pain management. Patient is threatening to leave if he does not received hydromorphone IV or something stronger for anxiety. Will inform hospitalist.
--- NOTE | 2019-02-08 06:15 | NUR ---
HOSPITALIST PAGED RE: ANXIETY MEDICATION Hospitalist paged regarding anxiety medication. Awaiting call back.
--- NOTE | 2019-02-08 06:22 | NUR ---
HOSPITALIST RETURNED CALL RE: ANXIETY MEDICATION Notified EDUAR Cedillo that patient is requesting a higher dose of Ativan PO due to patient stating that Ativan 5mg PO will not help with his anxiety prior to dialysis. EDUAR Cedillo also notified that patient continues to request Hydromorphone IV and patient is threatening to leave if he does not received hydromorphone IV or something stronger for anxiety. No new orders received at this time.
--- NOTE | 2019-02-08 06:23 | NUR ---
PATIENT IS REFUSING LAB DRAWS Patient is refusing lab draw this morning. Educated patient on the need for lab draw, patient verbalized understanding and continues to refuse.
--- NOTE | 2019-02-08 06:31 | NUR ---
DR. SHOEMAKER PAGED RE: ANXIETY MEDICATION Dr. Shoemaker paged regarding anxiety medication. Patient is requesting anxiety medication prior to receiving dialysis due to patient. Awaiting call back.
--- NOTE | 2019-02-08 06:40 | NUR ---
UPDATED PATIENT ON PLAN OF CARE Notified patient that this RN spoke with hospitalist and no new orders were received for anxiety or pain. This RN also notified patient that this RN paged employee placement specialist to try and get an order for anxiety medication. This RN informed patient of the risks if he decides to leave against medical advice. Patient verbalized understanding and has agreed to stay.
[2019-02-08] MEDS: PANTOPRAZOLE 40 MG TAB PO SCH (06:51)
[2019-02-08] MEDS ORDERED: SODIUM CHL 0.9% 1000 ML BAG XX ONE (07:00)
--- NOTE | 2019-02-08 07:20 | NUR ---
CLOSING SHIFT NOTE Patient care endorsed to William RESENDIZ.
--- NOTE | 2019-02-08 07:30 | NUR ---
OPENING SHIFT NOTE PATIENT LAYING IN BED LOW FOWLERS. PATIENT A&OX4. NO S/S OF DISTRESS NOTED AT THIS TIME. PATIENT REPORTS 9/10 PAIN AT THIS TIME. OFFERED PATIENT MORPHINE IV PER EMAR. PATIENT STATES HE DOES NOT TAKE THAT AT HOME AND HE WILL NOT START TAKING IT HERE. PATIENT UPDATED ON POC. ALL QUESTIONS ANSWERED. BED IN LOWEST LOCKED POSITION WITH CALL LIGHT WITHIN REACH. WILL CONTINUE CARE.
[2019-02-08] MEDS ORDERED: LORazepam 2MG/ML-1ML VIAL IV ONE (07:45)
--- NOTE | 2019-02-08 07:57 | NUR ---
SPOKE TO RYAN RESENDIZ FROM [facility] REGARDING TIME FOR DIALYSIS. STATED HE WOULD GET IN CONTACT WITH NURSE WHO WILL BE DOING DIALYSIS ON PATIENT TO CALL THIS RN BACK.
[2019-02-08] MEDS: CALCIUM ACETATE 667 MG CAP PO SCH ×3 (08:00→18:00)
[2019-02-08] MEDS: SEVELAMER 800 MG TAB PO SCH ×3 (08:37→18:27)
--- NOTE | 2019-02-08 08:40 | NUR ---
SPOKE TO RYAN RESENDIZ REGARDING DIALYSIS. STATED HE WILL NOT BE HERE UNTIL 1000AM.
[2019-02-08] MEDS: FOLIC ACID 1 MG TAB PO SCH (10:00)
--- NOTE | 2019-02-08 10:58 | NUR ---
SPOKE TO RYAN RESENDIZ REGARDING DIALYSIS. STATED HE WOULD BE HERE IN 30 MINUTES. PATIENT IN NO S/S OF DISTRESS AT THIS TIME.
--- NOTE | 2019-02-08 13:00 | NUR ---
DIALYSIS AT BEDSIDE.
[2019-02-08 13:46] LABS: Red Blood Cells 2.32 10^6/uL (4.5-5.90)
[2019-02-08 13:47] LABS: Hematocrit 19.5 % (41.0-53.0); Mean Corpuscular Hemoglobin 28.3 pg (28.0-32.0); Mean Corpuscular Hgb Conc. 33.7 g/dL (32.0-36.0); Mean Corpuscular Volume 83.9 fL (80.0-100.0); Platelet Count (auto) 224 10^3/uL (140-450); Red Cell Distribution Width 17.7 % (11.8-14.3); White Blood Cell 13.5 10^3/uL (4.4-10.8)
[2019-02-08 13:50] LABS: BUN/Creatinine Ratio 9.5; Potassium 4.1 mmol/L (3.5-5.1)
--- NOTE | 2019-02-08 13:50 | NUR ---
CRITICAL LAB: RECIEVED CRITICAL LAB OF HGB 6.6 AND CALCIUM 5.8. SPOKE TO Hever BLISS MADE AWARE. RECIEVED ORDER FOR CALCIUM 1GM IVPB. WILL FOLLOW THROUGH.
[2019-02-08 13:52] LABS: Band Neutrophils % (manual) 0; Basophils % (manual) 0 (0.0-2.0); Bilirubin, Total 0.7 mg/dL (0.2-1.0); Blast Cells 0; Eosinophils % (manual) 0 (0-7); Hemoglobin 6.6 g/dL (13.5-17.5); Metamyelocytes % 0; Myelocytes % 0; Promyelocytes % 0; Reactive Lymphocytes 0; Total Protein 7.5 g/dL (6.4-8.2)
[2019-02-08 13:53] LABS: Calcium 5.8 mg/dL (8.5-10.1)
[2019-02-08 13:55] LABS: % Iron Saturation 102.4 % (20-55)
[2019-02-08] MEDS ORDERED: CALCIUM CHL 100MG/ML 1,000 MG in D5W 5% 100 ML IV ONE (14:00)
[2019-02-08] MEDS: SODIUM CHLORIDE 0.9% 1,000 ML IV SCH (14:10)
[2019-02-08] MEDS: HYDROmorphone HCL 2 MG/ML VL IV PRN ×3 (14:45→23:04)
--- NOTE | 2019-02-08 15:17 | NUR ---
PATIENTS BLOOD PRESSURE ELEVATED 2330/121. SPOKE TO Hever BLISS RECEIVED ORDER FOR 10MG HYDRALAZINE IV Q6HPRN FOR BP GREATER THAN 150. TORB. WILL FOLLOW THROUGH.
[2019-02-08 15:25] LABS: Lymphocytes % (manual) 33 (10.0-50.0); Monocytes % (manual) 10 (0-12)
[2019-02-08] MEDS ORDERED: hydrALAZINE HCL 20 MG/ML VL IV PRN (15:30)
--- NOTE | 2019-02-08 15:59 | NUR ---
SPOKE TO Hever BLISS REGARDING ELEVATED BLOOD PRESSURE DURING DIALYSIS. PER Hever BLISS STATED TO NOT TRANSFUSE SECOND UNIT OF BLOOD. WILL FOLLOW THROUGH.
--- NOTE | 2019-02-08 16:00 | NUR ---
SUPERVISOR SLEEPING BAG DEPARTMENT AT BEDSIDE.
--- NOTE | 2019-02-08 16:00 | NUR ---
PER MACHINE PULLER OVER. DIALYSIS COMPLETED.
[2019-02-08] MEDS: amLODIPine BESYLATE 5 MG TAB PO SCH (16:48)
--- NOTE | 2019-02-08 16:48 | NUR ---
PATIENT BLOOD PRESSURE ELEVATED. ATTEMPTED TO GIVE CLONIDINE 0.1MG PO PER EMAR. PATIENT REFUSED STATING HE WAS GETTING TOO MANY BLOOD PRESSURE MEDICATIONS. INFORMED OF IMPORTANCE OF DECREASING BLOOD PRESSURE AND CONSEQUENCES OF ELEVATED BLOOD PRESSURE INCLUDING STROKE. PATIENT VERBALZIED UNDERSTANDING AND CONTINUING TO REFUSE MEDICATION.
[2019-02-08] MEDS ORDERED: hydrALAZINE HCL 20 MG/ML VL IV SCH (18:00)
[2019-02-08] MEDS: cloNIDine HCL 0.1 MG TAB PO PRN (18:27)
--- NOTE | 2019-02-08 19:45 | NUR ---
OPENING SHIFT NOTE Patient is laying in bed low fowlers. Patient is alert and oriented x4. Patient is complaining of generalized pain (pain scale 8/10). Patient has already been medicated for pain (see emar). No S/S of distress noted at this time. Instructed on plan of care and to call for assistance as needed, patient verbalized understanding. Bed is locked in lowest position, side rails x 2 are up, call light is within reach, and bed alarm is on.
--- NOTE | 2019-02-08 20:26 | NUR ---
HOSPITALIST PAGED RE: PAIN MEDICATION Hospitalist paged regarding pain medication. Patient is complaining of generalized pain (02/05). Awaiting call back.
[2019-02-08] MEDS ORDERED: EPOETIN ALFA 10,000 UNIT/1 ML VIAL SC ONE (21:00)
[2019-02-08] MEDS: HYDROcodone-ACET 5/325MG TAB PO PRN (21:25)
--- NOTE | 2019-02-08 21:44 | NUR ---
PATIENT REFUSING SCHEDULED EPOGEN Patient is refusing scheduled epogen. Educated patient on the indications of epogen and why he needs epogen. Patient was also educated on his current hemoglobin level and how the epogen would benefit him. Patient verbalized understanding and continues to refuse scheduled epogen. When this RN asked patient why he is refusing epogen patient did not given an explanation and just said "please nurse."
--- NOTE | 2019-02-08 22:30 | NUR ---
SPOKE WITH DR. JOHNSON RE: BLOOD DRAW Notified Dr. Johnson that patient had a critical hemoglobin level today, had blood transfused, and has orders to check hemoglobin and hematocrit for tomorrow morning. Orders received for CBC to be drawn in the morning. Order read back and verified. Will carry out orders as received. Addendum: 02/09/19 at 0012 by SELVIN HURST RN RN SPOKE WITH DR. JOHNSON RE: BLOOD DRAW Notified Dr. Johnson that patient had a critical hemoglobin level today, had blood transfused, and has *NO orders to check hemoglobin and hematocrit for tomorrow morning. Orders received for CBC to be drawn in the morning. Order read back and verified. Will carry out orders as received.
[2019-02-09] VITALS (7 sets, daily range): BP systolic 114–143; BP diastolic 63–92
[2019-02-09] MEDS: HYDROcodone-ACET 5/325MG TAB PO PRN (01:12)
[2019-02-09] MEDS: HYDROmorphone HCL 2 MG/ML VL IV PRN ×4 (04:06→20:43)
--- NOTE | 2019-02-09 05:10 | NUR ---
SPOKE WITH HOSPITALIST RE: SWELLING Notified EDUAR James that patient woke up with slight swelling to his face. Patients SPO2 is 100% on 2L NC, lung sounds are clear upon auscultation. Orders received from EDUAR James to continue to monitor patient.
[2019-02-09] MEDS: LORazepam 0.5 MG TAB PO PRN (05:34)
[2019-02-09] MEDS: LABETALOL HCL 200 MG TAB PO SCH ×3 (06:00→21:19)
[2019-02-09] MEDS: hydrALAZINE HCL 25 MG TAB PO SCH ×3 (06:00→22:00)
[2019-02-09 06:17] LABS: Hematocrit 22.6 % (41.0-53.0); Hemoglobin 7.6 g/dL (13.5-17.5); Mean Corpuscular Volume 84.7 fL (80.0-100.0); Platelet Count (auto) 178 10^3/uL (140-450)
[2019-02-09 06:21] LABS: Mean Corpuscular Hemoglobin 28.5 pg (28.0-32.0); Mean Corpuscular Hgb Conc. 33.6 g/dL (32.0-36.0); Red Blood Cells 2.66 10^6/uL (4.5-5.90); Red Cell Distribution Width 17.2 % (11.8-14.3)
[2019-02-09] MEDS: PANTOPRAZOLE 40 MG TAB PO SCH (06:21)
[2019-02-09] MEDS: SODIUM CHLORIDE 0.9% 1,000 ML IV SCH ×3 (06:21→17:19)
--- NOTE | 2019-02-09 06:21 | NUR ---
REFUSING BLOOD PRESSURE MEDICATIONS Patient refused scheduled 0600 blood pressure medications. Patient states his "blood pressure is too low." Educated patient on the importance of maintaining blood pressure within normal parameters, patient verbalized understanding, and continues to refuse scheduled blood pressure medications (see eMAR).
[2019-02-09 06:36] LABS: Calcium 6.4 mg/dL (8.5-10.1); Magnesium 1.7 mg/dL (1.6-2.6); Potassium 4.1 mmol/L (3.5-5.1)
[2019-02-09 06:38] LABS: BUN/Creatinine Ratio 7.8
[2019-02-09 06:46] LABS: White Blood Cell 31.4 10^3/uL (4.4-10.8)
[2019-02-09 06:48] LABS: Basophils % (manual) 0 (0.0-2.0); Blast Cells 0; Eosinophils % (manual) 0 (0-7); Metamyelocytes % 0; Myelocytes % 0; Promyelocytes % 0; Reactive Lymphocytes 0
--- NOTE | 2019-02-09 06:48 | NUR ---
HOSPITALIST PAGED RE: CRITICAL LAB VALUE Hospitalist paged regarding critical WBC lab value.
--- NOTE | 2019-02-09 06:53 | NUR ---
HOSPITALIST RETURNED CALL RE: CRITICAL LAB VALUE Hospitalist EDUAR James returned call. Notified STEAMER TENDER Jacob of patients critical WBC level of 31.4. Updated STEAMER TENDER Jacob on patients most recent vital signs and care of plan. Orders received for blood cultures, chest x-ray, lactic acid, zosyn 2.25gm IV piggy back Q12, and vanco IV per pharmacy protocol. Orders read back and verified. Will carry out orders as received.
[2019-02-09] MEDS ORDERED: VANCOMYCIN PER PHARMACY 0 MG IV SCH (07:00)
[2019-02-09 07:18] LABS: Band Neutrophils % (manual) 8; Lymphocytes % (manual) 10 (10.0-50.0); Monocytes % (manual) 8 (0-12)
[2019-02-09] MEDS: SEVELAMER 800 MG TAB PO SCH ×3 (08:00→18:00)
[2019-02-09] MEDS ORDERED: VANCOMYCIN 1GM/250ML 250 ML IV ONE (08:00)
[2019-02-09] MEDS: CALCIUM ACETATE 667 MG CAP PO SCH ×3 (08:00→18:00)
--- NOTE | 2019-02-09 08:07 | NUR ---
Opening Shift Note Received report on the patient. Awake lying in bed. Patient shows no signs of distress at this time. Tried to discuss plan of care with the patient today, but he refused all interaction. Bed in lowest position, side rails up X2, and call light is within reach. Will continue to monitor.
--- NOTE | 2019-02-09 08:10 | NUR ---
Patient Refused Assessment Patient refused morning assessment. Patient stated "just leave me alone".
[2019-02-09] MEDS: amLODIPine BESYLATE 5 MG TAB PO SCH (10:00)
[2019-02-09] MEDS: CARVEDILOL 12.5 MG TAB PO SCH ×3 (10:00→21:14)
[2019-02-09] MEDS: FOLIC ACID 1 MG TAB PO SCH (10:00)
--- NOTE | 2019-02-09 10:03 | NUR ---
Pain Medication physician office secretary notified that the patient wanted pain medication. Patient refused morning assessment. Told patient he could get pain medication after an assessment is done for baseline. No pain medication given because patient refused assessment again.
--- NOTE | 2019-02-09 10:52 | NUR ---
Medication Refusal Patient refused phos lo, renagel, norvasc, coreg, and folic acid.
[2019-02-09] MEDS ORDERED: MAGNESIUM SULFATE 1GM/100ML 100 ML IV ONE (12:15)
[2019-02-09] MEDS: PIPERACILLIN-TAZOB 2.25GM 50 ML IV SCH ×2 (12:56→21:10)
[2019-02-09] MEDS ORDERED: CALCIUM CHL 100MG/ML 1,000 MG in D5W 5% 100 ML IV ONE (13:30)
[2019-02-09 13:48] LABS: Hepatitis A Ab IgM Negative; Hepatitis B Core IgM Negative; Hepatitis B Surface Antigen Negative (Negative)
[2019-02-09 13:49] LABS: Hepatitis C Antibody Negative (Negative)
--- NOTE | 2019-02-09 14:32 | NUR ---
Magnesium Refusal Patient refused magnesium to be hung.
--- NOTE | 2019-02-09 14:32 | NUR ---
Flu Swab Refusal Patient refused to be swabbed for the flu.
--- NOTE | 2019-02-09 17:16 | NUR ---
Resistive to Care Patient is continuing to refuse medications and electrolyte replacement despite multiple attempts on educating patient about his status and current lab values. The only medication that patient wants and calls for is dilaudid, 2mg.
--- NOTE | 2019-02-09 19:07 | NUR ---
Closing Shift Note Patient resting in bed with eyes closed. No distress noted. Respirations are even and unlabored. Patient has continued to be resistive to care all day except for dilaudid, 2 mg administration or requesting multiple food items. Will give report and endorse care to the supervisor color making RN.
--- NOTE | 2019-02-09 19:55 | NUR ---
Opening Shift Note Assumed care of patient, lying in bed, awake and alert, oriented x 4, follows direction, clear speech. On oxygen at 2L via NC with even and unlabored respirations, no S/S of distress or SOB. IV to left 4th digit 24g intact and patent infusing IVF per orders. Right upper chest Sai catheter intact. Patient turns independently in bed. Bed low locked position with side rails up x 2 and call light within reach. Instructed on POC and to call for assist PRN, will continue to monitor for changes Q1hr and PRN.
--- NOTE | 2019-02-09 20:30 | NUR ---
Patient refused dinner patient reports he did not eat the food from dinner, reports he did not like it. Patient asking to order pizza and go down to vending machine to get a snickers bar. Educated patient on diet order and indication for diet, informed patient hospital policies on cafeteria. Patient refused to eat sandwich, Offered patient snack that are available at this time, patient refused. 2230 patient consumed 100% of sandwich and ena crackers.
[2019-02-09 21:09] LABS: Hematocrit 23.2 % (41.0-53.0); Hemoglobin 7.6 g/dL (13.5-17.5); Mean Corpuscular Hemoglobin 28.2 pg (28.0-32.0); Mean Corpuscular Hgb Conc. 32.9 g/dL (32.0-36.0); Mean Corpuscular Volume 85.7 fL (80.0-100.0); Platelet Count (auto) 176 10^3/uL (140-450); Red Blood Cells 2.71 10^6/uL (4.5-5.90); Red Cell Distribution Width 17.4 % (11.8-14.3)
[2019-02-09 21:27] LABS: Basophils % (manual) 0 (0.0-2.0); Blast Cells 0; Eosinophils % (manual) 0 (0-7); Metamyelocytes % 0; Myelocytes % 0; Promyelocytes % 0; Reactive Lymphocytes 0
--- NOTE | 2019-02-09 22:00 | NUR ---
Paged Leonid WITT RE: WBC 37 awaiting call back, will continue care.
--- NOTE | 2019-02-09 22:13 | NUR ---
Received call back from Leonid WITT updated on patient status, no new orders received, will continue care.
[2019-02-09 22:33] LABS: Band Neutrophils % (manual) 20; Lymphocytes % (manual) 13 (10.0-50.0); Monocytes % (manual) 5 (0-12)
--- NOTE | 2019-02-10 | NUR ---
IV insertion IV access obtained, via clean sterile technique by inserting 24 gauge catheter at left forearm after 1 attempt(s). IV secured properly. No trauma to site. Patient tolerated well. NOTE: IV to left hand 4th digit dc'd, patient reports pain to IV site, DC'd with clean sterile technique, catheter fully intact. Pressure dressing applied to site. Patient tolerated well. Addendum: 02/11/19 at 0433 by Betty Serrano RN RN wrong time
[2019-02-10] MEDS: HYDROmorphone HCL 2 MG/ML VL IV PRN ×5 (01:36→22:13)
[2019-02-10] MEDS: LORazepam 0.5 MG TAB PO PRN ×2 (02:49→23:29)
--- NOTE | 2019-02-10 05:15 | NUR ---
Patient refused lab draw Patient is refusing lab draw this morning. Educated patient on the need for lab draw, patient verbalized understanding and continues to refuse.
[2019-02-10 05:36] VITALS: BP 140/83
[2019-02-10] MEDS: hydrALAZINE HCL 25 MG TAB PO SCH ×3 (06:00→20:58)
[2019-02-10] MEDS: LABETALOL HCL 200 MG TAB PO SCH ×3 (06:00→20:56)
--- NOTE | 2019-02-10 06:00 | NUR ---
Influenza swab given to quality control lab technician
[2019-02-10] MEDS: PANTOPRAZOLE 40 MG TAB PO SCH (06:15)
--- NOTE | 2019-02-10 06:18 | NUR ---
[facility] called per dialysis nurse hold a.m. bp meds
--- NOTE | 2019-02-10 06:57 | NUR ---
Closing Note patient resting in bed on oxygen at 2L via NC with even and unlabored respirations, no s/s of distress. IV intact and patent infusing at 50mL/hr. Bed low locked position with side rails up x 2 and call light within reach.
[2019-02-10] MEDS: amLODIPine BESYLATE 5 MG TAB PO SCH (07:12)
[2019-02-10] MEDS: CARVEDILOL 12.5 MG TAB PO SCH ×2 (07:13→20:58)
--- NOTE | 2019-02-10 07:30 | NUR ---
Opening Shift Note Assuming care of patient at this time. Patient is awake and alert. Patient is complaining of 10/10 pain, "all over." Will medicate per doctor's orders. Bed is locked and lowered with side rails up x2. Patient shows no signs or symptoms of shortness of breath. Patient on 2L nasal cannula, respirations are even and unlabored. Instructed patient on the plan of care for today and to call for assistance as needed. Call light within reach. Will continue to round hourly and as needed.
[2019-02-10] MEDS: CALCIUM ACETATE 667 MG CAP PO SCH ×3 (07:56→18:00)
[2019-02-10] MEDS: SEVELAMER 800 MG TAB PO SCH ×3 (07:56→18:00)
[2019-02-10 09:00] VITALS: BP 132/74
[2019-02-10] MEDS: FOLIC ACID 1 MG TAB PO SCH (10:00)
--- NOTE | 2019-02-10 10:22 | NUR ---
Refusing Labs Patient is refusing labs at this time. Patient has refused x3. Lab order will be cancelled per protocol. Will notify
--- NOTE | 2019-02-10 10:25 | NUR ---
Page to Dr. Neff to Dr. Fraser at this time to notify about patient's refusals. Awaiting call back.
--- NOTE | 2019-02-10 10:29 | NUR ---
Doctors at the station Dr. Fraser and Dr. Benjamin at the station at this time. Informed both doctors about patient refusing labs and medications. Doctors verbalized understanding.
[2019-02-10] MEDS: PIPERACILLIN-TAZOB 2.25GM 50 ML IV SCH ×2 (11:22→23:20)
[2019-02-10 11:44] LABS: Eosinophils # (auto) 0 uL; Hemoglobin 7.1 g/dL (13.5-17.5); Nucleated Red Blood Cells % 0.1 %; White Blood Cell 28.7 10^3/uL (4.4-10.8)
[2019-02-10 11:48] LABS: Basophils # (auto) 0.1 uL; Basophils % (auto) 0.4 % (0.0-2.0); Hematocrit 21.2 % (41.0-53.0); Lymphocytes # (auto) 3.7 uL; Lymphocytes % (auto) 13.1 % (10.0-50.0); Mean Corpuscular Hemoglobin 28.6 pg (28.0-32.0); Mean Corpuscular Hgb Conc. 33.7 g/dL (32.0-36.0); Mean Corpuscular Volume 84.8 fL (80.0-100.0); Monocytes # (auto) 1.8 uL; Monocytes % (auto) 6.2 % (0.0-12.0); Neutrophils # (auto) 23.1 uL; Neutrophils % (auto) 80.3 % (37.0-80.0); Platelet Count (auto) 161 10^3/uL (140-450); Red Cell Distribution Width 17.4 % (11.8-14.3)
[2019-02-10 12:18] LABS: Albumin 2.5 g/dL (3.4-5.0); Calcium 6.1 mg/dL (8.5-10.1); Potassium 5.3 mmol/L (3.5-5.1)
[2019-02-10 12:21] LABS: BUN/Creatinine Ratio 9.1; Bilirubin, Total 1.1 mg/dL (0.2-1.0); Total Protein 7.2 g/dL (6.4-8.2)
[2019-02-10 13:00] VITALS: BP 127/68
[2019-02-10] MEDS ORDERED: LORazepam 0.5 MG TAB PO ONE (13:15)
[2019-02-10] MEDS ORDERED: HEPARIN 1,000 UNITS/ml 1ML VIAL IV ONE (15:30)
--- NOTE | 2019-02-10 16:26 | NUR ---
Assessment Pt is a 48 yr old alert and oriented male. Pt lives with family, and his sister Mila is his emergency contact but pt didn't have her # with him. Pt is ambulatory and independent with ADLs, cooking and cleaning. Pt has ESRD and receives dialysis with [facility]. Pt complained a lot about the food, not eating and losing his cell phone. SW discussed issues with nurse and found that the pt's concerns had been addressed. Pt receives SSI. Pt has no interest in AD. Pt stated that he might have a family member get him or he might need a taxi voucher. Pt plans to d/c home upon medical clearance. No needs or concerns at this time. Addendum: 02/10/19 at 1631 by EVERT JIMENEZ SS Amended: Links added.
[2019-02-10 17:00] VITALS: BP 165/85
--- NOTE | 2019-02-10 17:32 | NUR ---
Dialysis Dialysis is complete at this time. 2.7 L taken off. Patient resting in bed. No distress noted.
--- NOTE | 2019-02-10 17:55 | NUR ---
Blood Pressure Blood pressure at this time 163/77. Will administer PRN Clonidine.
[2019-02-10] MEDS: cloNIDine HCL 0.1 MG TAB PO PRN (17:59)
--- NOTE | 2019-02-10 18:52 | NUR ---
Call to Detail Assembler Bertha house father, unaware of patient's phone being misplaced. So far no phone has been turned in.
--- NOTE | 2019-02-10 19:36 | NUR ---
Closing Shift Note Patient resting in bed with eyes closed. Patient shows no signs or symptoms of distress. Respirations are even and unlabored. Report given. Will endorse care to the table games shift manager RN.
--- NOTE | 2019-02-10 19:50 | NUR ---
Opening Shift Note Assumed care of patient, lying in bed, awake and alert, oriented x 4, follows direction, clear speech. On oxygen at 2L via NC with even and unlabored respirations, no S/S of distress or SOB. IV to left 4th digit 24g intact and patent. Right upper chest Sai catheter intact. Patient turns independently in bed. Bed low locked position with side rails up x 2 and call light within reach. Instructed on POC and to call for assist PRN, will continue to monitor for changes Q1hr and PRN.
--- NOTE | 2019-02-10 20:50 | NUR ---
IV insertion IV access obtained, via clean sterile technique by inserting 24 gauge catheter at left forearm after 1 attempt(s). IV secured properly. No trauma to site. Patient tolerated well. NOTE: IV to left hand 4th digit dc'd, patient reports pain to IV site, DC'd with clean sterile technique, catheter fully intact. Pressure dressing applied to site. Patient tolerated well.
[2019-02-10] MEDS ORDERED: VANCOMYCIN 1GM/250ML 250 ML IV ONE (21:00)
[2019-02-10 22:00] VITALS: BP 177/83
--- NOTE | 2019-02-10 22:00 | NUR ---
PATIENT HAS BEEN REFUSING DINNER FOR THE PAST TWO NIGHTS DURING MY SHIFT BUT THEN THROUGHOUT THE SHIFT CONSTANTLY ASK FOR SNACKS MOSTLY SANDWICHES,JUICES, AND CRACKERS WITH THE APPROVAL OF MY NURSE I GIVE IT TO HIM REQUESTED
--- NOTE | 2019-02-10 23:00 | NUR ---
Patient reports lost property Patient reported he came in with 2 cell phones and unable to find second cell phones. Property management form completed x 2 and available in patients hard chart with patients signature. Verified with patient what kind of tablet is listed on form, patient reports it is a red notebook (paperback spiral bound red notebook). Patient current has 1 cell phone, 2 black chargers, 1 debit card, 1 credit card, small blue bag. Patient refused to sign an updated belongings list/property management form. refractory technician Shannon notified. Will endorsed to day shift RN for follow up.
[2019-02-11] MEDS: HYDROmorphone HCL 2 MG/ML VL IV PRN ×3 (02:58→23:05)
[2019-02-11] MEDS: PANTOPRAZOLE 40 MG TAB PO SCH (05:27)
[2019-02-11] MEDS: LABETALOL HCL 200 MG TAB PO SCH ×4 (05:28→22:20)
[2019-02-11 05:29] VITALS: BP 148/79
[2019-02-11] MEDS: hydrALAZINE HCL 25 MG TAB PO SCH ×3 (05:29→22:19)
[2019-02-11 06:03] LABS: Eosinophils # (auto) 0 uL; Eosinophils % (auto) 0.1 % (0.0-7.0); Hemoglobin 7.2 g/dL (13.5-17.5); Nucleated Red Blood Cells % 0.1 %; Red Blood Cells 2.49 10^6/uL (4.5-5.90)
[2019-02-11 06:07] LABS: Basophils # (auto) 0.3 uL; Basophils % (auto) 1.4 % (0.0-2.0); Hematocrit 21.1 % (41.0-53.0); Lymphocytes # (auto) 4.9 uL; Lymphocytes % (auto) 21.2 % (10.0-50.0); Mean Corpuscular Hemoglobin 28.7 pg (28.0-32.0); Mean Corpuscular Volume 84.5 fL (80.0-100.0); Monocytes % (auto) 4.2 % (0.0-12.0); Neutrophils # (auto) 16.7 uL; Neutrophils % (auto) 73.1 % (37.0-80.0); Platelet Count (auto) 163 10^3/uL (140-450); Red Cell Distribution Width 17.4 % (11.8-14.3); White Blood Cell 22.8 10^3/uL (4.4-10.8)
[2019-02-11 06:25] LABS: Albumin 2.5 g/dL (3.4-5.0); Calcium 6.6 mg/dL (8.5-10.1); Potassium 4.5 mmol/L (3.5-5.1)
[2019-02-11 06:30] LABS: BUN/Creatinine Ratio 8.5; Total Protein 7.2 g/dL (6.4-8.2)
--- NOTE | 2019-02-11 07:03 | NUR ---
Closing Note patient resting in bed on oxygen at 2L via NC with even and unlabored respirations, no s/s of distress. IV intact and patent. Bed low locked position with side rails up x 2 and call light within reach. Informed dayshift RN regarding lost property. Endorsed care to dayshift RN.
--- NOTE | 2019-02-11 07:30 | NUR ---
Opening Shift Note Assuming care of patient at this time. Patient is awake and alert. Patient is complaining of 10/10 pain. Will medicate per doctor's orders. Bed is locked and lowered with side rails up x2. Patient shows no signs or symptoms of shortness of breath. Patient on 2L nasal cannula, respirations are even and unlabored. Instructed patient on the plan of care for today and to call for assistance as needed. Call light within reach. Will continue to round hourly and as needed.
[2019-02-11] MEDS: CALCIUM ACETATE 667 MG CAP PO SCH ×3 (08:00→18:00)
[2019-02-11] MEDS: SEVELAMER 800 MG TAB PO SCH ×3 (08:00→18:00)
[2019-02-11 09:00] VITALS: BP 148/86
[2019-02-11] MEDS: FOLIC ACID 1 MG TAB PO SCH (10:00)
[2019-02-11] MEDS: amLODIPine BESYLATE 5 MG TAB PO SCH (10:30)
[2019-02-11] MEDS: CARVEDILOL 12.5 MG TAB PO SCH ×2 (10:31→22:19)
[2019-02-11] MEDS: PIPERACILLIN-TAZOB 2.25GM 50 ML IV SCH ×2 (10:31→22:17)
--- NOTE | 2019-02-11 11:47 | NUR ---
Nutrition Assessment Notes please see attached link for complete assessment Est. Needs IBW 67 [id number] kcal (25-30 kcal/kgBW), 80-94 gms pro (1.2-1.4gms/kgBW). Will continue to monitor pertinent labs and reassess nutrient need prn Addendum: 02/11/19 at [address] Amended: Links added.
[2019-02-11] MEDS: LORazepam 0.5 MG TAB PO PRN (12:03)
--- NOTE | 2019-02-11 13:15 | NUR ---
Fax to [facility] Called [facility] in order to verify fax number for medical records. Obtained fax number. Will fax medical records request at this time.
--- NOTE | 2019-02-11 13:25 | NUR ---
Call to Patient Advocate Spoke to Ramona, currently covering for patient advocate, about patient's missing phone. Raomna aware of possibility of phone being placed in the sheets. Will make a call to see if any phones were found. Patient aware that advocate was notified.
[2019-02-11] MEDS ORDERED: HYDROmorphone HCL 2 MG/ML VL IV PRN (16:00)
[2019-02-11 17:00] VITALS: BP 146/89
--- NOTE | 2019-02-11 19:30 | NUR ---
received pt from day rn poc reviewed
--- NOTE | 2019-02-11 19:40 | NUR ---
Closing Shift Note Patient resting in bed with eyes closed. Patient shows no signs or symptoms of distress. Respirations are even and unlabored. Report given. Will endorse care to the retail shift manager RN.
[2019-02-11 22:00] VITALS: BP 153/81
--- NOTE | 2019-02-11 22:00 | NUR ---
PATIENT REFUSE DINNER
--- NOTE | 2019-02-11 22:31 | NUR ---
awoke c/o general body pain, will medicate as ordered
[2019-02-12] MEDS: LORazepam 0.5 MG TAB PO PRN (00:06)
[2019-02-12] MEDS: HYDROmorphone HCL 2 MG/ML VL IV PRN ×3 (03:12→11:15)
--- NOTE | 2019-02-12 03:53 | NUR ---
awoke pain relieved with med given
[2019-02-12 05:00] VITALS: BP 143/78
[2019-02-12] MEDS: PANTOPRAZOLE 40 MG TAB PO SCH (05:46)
[2019-02-12] MEDS: HYDROcodone-ACET 5/325MG TAB PO PRN (05:48)
[2019-02-12] MEDS: hydrALAZINE HCL 25 MG TAB PO SCH (05:49)
[2019-02-12] MEDS: LABETALOL HCL 200 MG TAB PO SCH (05:50)
--- NOTE | 2019-02-12 07:30 | NUR ---
Opening Shift Note Assumed care of patient, awake and alert,oriented x 4 and verbally responsive. Respiratory even and unlabored. No S/S of distress/SOB or pain. Skin is warm and dry to touch. Instructed on POC and to call for assist PRN, will continue to monitor for changes Q1hr and PRN.
--- NOTE | 2019-02-12 07:33 | NUR ---
report given to am nurse poc reviewed
[2019-02-12] MEDS: CALCIUM ACETATE 667 MG CAP PO SCH ×2 (08:00→12:00)
[2019-02-12] MEDS: SEVELAMER 800 MG TAB PO SCH ×2 (08:00→12:00)
[2019-02-12 09:16] VITALS: BP 160/82
[2019-02-12] MEDS: FOLIC ACID 1 MG TAB PO SCH (10:00)
[2019-02-12] MEDS: PIPERACILLIN-TAZOB 2.25GM 50 ML IV SCH (10:00)
[2019-02-12] MEDS: CARVEDILOL 12.5 MG TAB PO SCH (10:00)
[2019-02-12] MEDS: amLODIPine BESYLATE 5 MG TAB PO SCH (10:00)
--- NOTE | 2019-02-12 10:18 | NUR ---
Patient refused all medications, labs drawn and would like to go AMA, he stated waiting for a ride and will sign AMA when his sister is here.
--- NOTE | 2019-02-12 12:04 | NUR ---
Dr. Shaikh mackenzie regarding patient left JENNY RITCHIE ([facility]) notified.
--- NOTE | 2019-02-12 12:04 | NUR ---
AMA Note MANJIT CHESTER states they want to leave the hospital Against Medical Advice (AMA). Patient encouraged to stay for further treatment/stabilization. Dr. Fraser notified of patient's wishes. Patient advised of the risks and benefits of leaving AMA. Patient verbalized understanding. Patient encouraged to return to the ER if symptoms do not improve or worsen.
--- NOTE | 2019-02-12 12:05 | NUR ---
Dr. Fraser made aware of patient left AMA.
== END 2019-02-12 12:00 | disposition left against medical advice (07) | DRG 871 ==
LOC: ER 16:07 → OVERFLOW 16:08 → WEST WING 23:44
PROVIDERS: ADMIT Nurse Practitioner; ATTEND Internal Medicine
PROC: 30233N1 Transfusion of Nonautologous Red Blood Cells into Peripheral Vein, Percutaneous Approach (ICD-10-PCS; principal; 2019-02-08)
PROC: 5A1D70Z Performance of Urinary Filtration, Intermittent, Less than 6 Hours Per Day (ICD-10-PCS; 2019-02-08)
PROC: 5A1D70Z Performance of Urinary Filtration, Intermittent, Less than 6 Hours Per Day (ICD-10-PCS; 2019-02-10)
DX: A41.9 Sepsis, unspecified organism (principal); D57.00 Hb-SS disease with crisis, unspecified; N18.6 End stage renal disease; J18.9 Pneumonia, unspecified organism; I31.3 Pericardial effusion (noninflammatory); I12.0 Hypertensive chronic kidney disease with stage 5 chronic kidney disease or end stage renal disease; I16.1 Hypertensive emergency; G89.4 Chronic pain syndrome; I07.1 Rheumatic tricuspid insufficiency; D63.1 Anemia in chronic kidney disease; M54.5 Low back pain; F41.9 Anxiety disorder, unspecified; Z53.20 Procedure and treatment not carried out because of patient's decision for unspecified reasons; Z82.49 Family history of ischemic heart disease and other diseases of the circulatory system; Z99.2 Dependence on renal dialysis; Z86.73 Personal history of transient ischemic attack (TIA), and cerebral infarction without residual deficits; Z91.15 Patient's noncompliance with renal dialysis; Z91.19 Patient's noncompliance with other medical treatment and regimen; Z90.49 Acquired absence of other specified parts of digestive tract; Z88.1 Allergy status to other antibiotic agents
CPT/HCPCS: 36415; 71045; 80048; 80053; 80074; 80202; 82728; 83021; 83540; 83550; 83605; 83615; 83735; 85007; 85025; 85027; 85045; 85660; 86850; 86900; 86901; 86920; 87040; 87081; 87804; 90935; 93005; 93306; 96365; 96375; G0378; J0885; J2405; J2543; J7060